=== PATIENT | male | born 1945 | race Caucasian/White ===

== ENCOUNTER 2024-04-28 11:09 | Emergency (ER) | payer OTHER ==
[~2024-04-28] VITALS: Ht 177.8 cm; Wt 70.3 kg
[2024-04-28 11:22] VITALS: BP_SYST 126; PULSE 81; RESP 18; TEMP 97.8; O2SAT 97
[2024-04-28] MEDS: DIPHTH,PERTUSS(ACELL),TET VAC 0.5 ML VIAL (Tdap) I.M. ONE (12:07)
[2024-04-28 12:15] VITALS: BP_SYST 126; PULSE 81; RESP 18; TEMP 97.8; O2SAT 97
== END 2024-04-28 12:15 | disposition home or self-care (01) ==
LOC: SED 11:09
DX: S50.311A Abrasion of right elbow, initial encounter (principal); S50.812A Abrasion of left forearm, initial encounter; Z23 Encounter for immunization; W22.8XXA Striking against or struck by other objects, initial encounter; Y93.89 Activity, other specified; Y92.89 Other specified places as the place of occurrence of the external cause; Y99.8 Other external cause status
CPT/HCPCS: 90715; 99283